=== PATIENT | male | born 1970 ===

== ENCOUNTER 2024-02-26 09:57 | Outpatient (OUT) | payer SELFPAY ==
--- NOTE | 2024-02-26 10:01 | XR_ITS ---
[address] [address] Patient Name: MARCELINA CACERES MRN: [id number] date: 1970 Sex: M Assigned Patient Location: [facility] Current Patient Location: [facility] Accession/Order Number: [id number] Exam Date: 02/26/2024 10:15 Report Date: 02/26/2024 22:23 At the request of: FELICE HOOPER Procedure: XR foot RT min 3V EXAM: XR foot RT min 3V HISTORY: Right Ankle And Foot Pain M25.571 COMPARISON: None. FINDINGS/IMPRESSION: 1. No acute fracture or dislocation. 2. 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 3. Calcaneal Achilles and plantar enthesophytes. 4. No ankle joint effusion. Electronically authenticated by: KAMILLA LAURA Date: 02/26/2024 22:23
--- NOTE | 2024-02-26 10:01 | XR_ITS ---
[address] [address] Patient Name: MARCELINA CACERES MRN: [id number] date: 1970 Sex: M Assigned Patient Location: [facility] Current Patient Location: [facility] Accession/Order Number: [id number] Exam Date: 02/26/2024 10:15 Report Date: 02/26/2024 22:23 At the request of: FELICE HOOPER Procedure: XR ankle RT min 3V EXAM: XR ankle RT min 3V HISTORY: Right Ankle And Foot Pain M25.571 COMPARISON: None. FINDINGS/IMPRESSION: 1. No acute fracture or dislocation. 2. Ankle mortise is maintained. 3. Calcaneal Achilles and plantar enthesophytes. 4. No ankle joint effusion. 5. Normal alignment of the subtalar joint. Electronically authenticated by: KAMILLA LAURA Date: 02/26/2024 22:23
== END 2024-02-26 09:58 | disposition home or self-care (01) ==
LOC: RAD 09:58
PROVIDERS: Visit Provider Podiatrist Foot & Ankle Surgery
DX: M25.571 Pain in right ankle and joints of right foot (principal); M77.31 Calcaneal spur, right foot
CPT/HCPCS: 73610; 73630